=== PATIENT | female | born 1965 | race Caucasian/White ===

== ENCOUNTER 2017-10-17 13:08 | Emergency (ER) | payer MEDICARE ==
[~2017-10-17] VITALS: Ht 167.6 cm; Wt 97.5 kg
[~2017-10-17 13:08] MED LIST: CYCLOBENZAPRINE10 M1 PO; LOMOTIL 0.025 M1 TAB PO; MEDROL4 M2 PO; NORCO 5-325 TA1 EACH PO; PROTONIX40 M3 PO; TRANS SCOPE PAT1 PAT TOP; TRIAMTERENE-HC1 EAC3; VALIUM5 M1 PO; VICODIN 300 MG-1 TAB PO; ZOCOR40 M1 PO
--- NOTE | 2017-10-17 13:15 | ED UPPER/LOWER EXTREMITY COMPL ---
History of Present Illness General Chief Complaint: Lower Extremity Problems Stated Complaint: PT FOR PAIN IN THE BACK OR HIP ON THE LT SIDE Source: patient Exam Limitations: no limitations Vital Signs & Intake/Output Vital Signs & Intake/Output Vital Signs Date Time Temp Pulse Resp B/P B/P Pulse O2 O2 Flow FiO2 Mean Ox Delivery Rate 10/17 1430 98.3 76 18 124/88 98 Room Air 10/17 1312 98.6 87 16 155/93 99 Room Air Allergies Coded Allergies: acetaminophen (From PERCOCET) (Severe, Itching 06/16/15) oxycodone (From PERCOCET) (Severe, Itching 06/16/15) hydromorphone (From DILAUDID) (UNKNOWN PER PT 10/17/17) Reconcile Medications Hydrocodone/Acetaminophen (Vicodin 5-300 MG Tablet) 5 MG-300 MG TABLET 1 TAB PO BID PRN pain Ibuprofen 800 MG TABLET 1 TAB PO TID PRN pain Pantoprazole Sodium (Protonix) 40 MG TABLET.DR 1 TAB PO DAILY GERD (Reported) Simvastatin (Zocor*) 40 MG TABLET 1 TAB PO DAILY CHOLESTEROL (Reported) Triage Nurses Notes Reviewed? yes Onset: Gradual Duration: week(s): Timing: recent history Severity: moderate Pain/Injury Location: Left: Hip. Method of Injury: unknown HPI: 52YO FEMALE presents to ED complaining of left posterior hip pain x 4 weeks. Patient describes pain as constant, 5/10, burning. Pain is worse in the AM when patient first wakes up. Patient went to an urgent care last week and was prescribed Flexeril. Patient states that she took this medication 2 days however she did not like the way this medication made her feel. Patient states that despite use of Flexeril her symptoms persisted. Patient has tried ice which does improve her symptoms. There is no trauma or inciting prior to onset of pain. Patient denies back pain, numbness, tingling, fall. (Bryanna BLACK,Jaclyn Rodriguez) Past History Travel History Traveled to [place] past 21 day No Medical History Any Pertinent Medical History? see below for history Neurological: NONE (mENIERIE'S DISEASE), vertigo (m) EENT: NONE Cardiovascular: NONE Respiratory: NONE Gastrointestinal: GERD Hepatic: NONE Renal: NONE Musculoskeletal: NONE Psychiatric: NONE Endocrine: NONE Blood Disorders: NONE Cancer(s): NONE BLACK OFF WORKER/Reproductive: NONE Tetanus Vaccine: 10/01/11 Surgical History Surgical History: non-contributory Psychosocial History What is your primary language Kinyarwanda Tobacco Use: Current Daily Use Daily Tobacco Use Amount/Type: => 5 Cigarettes daily Family History Hx Contributory? No (Jaclyn Cee) Review of Systems Review of Systems Constitutional: Reports: no symptoms. EENTM: Reports: no symptoms. Respiratory: Reports: no symptoms. Cardiovascular: Reports: no symptoms. Gastrointestinal/Abdominal: Reports: no symptoms. Genitourinary: Reports: no symptoms. Musculoskeletal: Reports: see HPI. Skin: Reports: no symptoms. Neurological/Psychological: Reports: no symptoms. Hematologic/Endocrine: Reports: no symptoms. Immunological: Reports: no symptoms. All Other Systems: Reviewed and Negative (Jaclyn Cee) Physical Exam Physical Exam General Appearance: well developed/nourished, no apparent distress, alert, awake Head: atraumatic, normal appearance Eyes: Bilateral: normal appearance. Ears, Nose, Throat: hearing grossly normal Neck: normal inspection, supple, full range of motion Cardiovascular/Respiratory: no respiratory distress Back: normal inspection, normal range of motion, no vertebral tenderness Leg Left: normal range of motion, normal inspection Leg Right: normal range of motion, normal inspection Hip Left: +SI and buttocks tenderness, ROM at hip intact Hip Right: normal range of motion, normal inspection Knee Left: normal range of motion, normal inspection Knee Right: normal range of motion, normal inspection Foot Left: normal inspection, normal range of motion Foot Right: normal inspection, normal range of motion Neurologic/Tendon: Strength 5/5 equal bilaterally, sensation intact Skin: intact, normal color, warm/dry (Jaclyn Cee) Progress Differential Diagnosis: contusion, fracture, sprain, tendon injury, tendinitis, arthritis, radicular pain, sciatica Plan of Care: X-rays show no acute abnormality. Patient's symptoms are reproducible on physical exam, likely related to tendon or muscle injury/inflammation. Also possibility of sciatic nerve pathology given point tenderness over her SI joint. Patient to follow-up with orthopedics for further evaluation. Patient able to ambulate without difficulty leaving the emergency department. The patient agrees with the plan of care. Diagnostic Imaging: Viewed by Me: Radiology Read. Discussed w/RAD: Radiology Read. Radiology Impression: PATIENT: TONIO ADAMES PRESENT AGE: 52 PATIENT ACCOUNT NO: [id number] : 65 LOCATION: [facility] ORDERING PHYSICIAN: Jaclyn BLACK SERVICE DATE: 10/17/17 EXAM TYPE: RAD - XRY-LUMBOSACRAL SPINE 4 VIEWS EXAMINATION: XR LUMBOSACRAL SPINE CLINICAL INFORMATION: Left sacroiliac pain with radiation. COMPARISON: None TECHNIQUE: 4 views of the lumbosacral spine were obtained. FINDINGS: No fracture or subluxation. Vertebral bodies and posterior elements are anatomically aligned. Vertebral body heights are maintained. Disc spaces are maintained. Small multilevel endplate osteophytes. The sacroiliac joints are symmetric and intact. The sacrum is intact. The bowel gas pattern is unremarkable. IMPRESSION: Mild degenerative changes at the lumbar spine. Unremarkable appearance of the sacroiliac joints. DICTATED BY: Nica CASTELLANOS,Fredis DATE/TIME DICTATED:1357 [employer] DESIGNER:SANTILLAN DATE/TIME TRANSCRIBED:10/17/171357 CONFIDENTIAL, DO NOT COPY WITHOUT APPROPRIATE AUTHORIZATION. <Electronically signed in Other Vendor System> SIGNED BY: Nica CASTELLANOS,Fredis 10/17/17 1403, PATIENT: TONIO ADAMES PRESENT AGE: 52 PATIENT ACCOUNT NO: [id number] : 65 LOCATION: [facility] ORDERING PHYSICIAN: Jaclyn BLACK SERVICE DATE: 10/17/17 EXAM TYPE: RAD - XRY-HIP 2- 3 VIEWS, LEFT EXAMINATION: XR HIP, LEFT CLINICAL INFORMATION: Left sacroiliac pain and hip pain. COMPARISON: None TECHNIQUE: Two views of the left hip. FINDINGS: No fracture or dislocation. The femoral head is well-seated within its acetabulum. The visualized left hemipelvis is intact. The left sacroiliac joint is unremarkable. The bowel gas pattern is unremarkable. IMPRESSION: Unremarkable appearance of the left hip and sacroiliac joint. DICTATED BY: Nica CASTELLANOS, Fredis DATE/TIME DICTATED:10/17/171399 SU[employer]UNIT[employer] DESIGNER:SANTILLAN DATE/TIME TRANSCRIBED:10/17/171399 CONFIDENTIAL, DO NOT COPY WITHOUT APPROPRIATE AUTHORIZATION. <Electronically signed in Other Vendor System> SIGNED BY: Fredis Yousif MD 10/17/17 3373 (Jaclyn Cee) Departure Departure Disposition: HOME OR SELF CARE Condition: Stable Clinical Impression Primary Impression: Hip pain Qualifiers: Laterality: left Qualified Code: M25.552 - Pain in left hip Referrals: Fely CASTELLANOS,Isabel Biggs (PCP/Family) Nathaly Martin MD Additional Instructions: Take Vicodin as prescribed as needed for pain. Take ibuprofen additionally for pain and inflammation. Follow-up with orthopedic referral, Dr. Martin, call today to make an appointment for as soon as possible. Return with worsening symptoms or concerns. Please note that there might be incidental findings in your evaluation that are unrelated to the current emergency department visit. Please notify your primary care doctor about this emergency department visit in order to obtain and review all of the testing performed so that these incidental findings can be monitored as needed. If you had an x-ray performed, please understand that some fractures may not be seen on the initial set of x-rays. If your symptoms persist you might need a repeat set of x-rays to check for such a fracture. If you had a laceration evaluated, please understand that foreign bodies such as glass or wood may not be visible to the naked eye or on plain x-rays. If the wound becomes red, swollen, increasingly more painful or if there is any drainage from the wound, please have it reevaluated by a physician for the possibility of a retained foreign body. If you're unable to follow up as outlined in the discharge instructions please return to the emergency department. Thank you for choosing the [facility] Emergency Department for your care. It was a pleasure to serve you today. Departure Forms: Customer Survey General Discharge Information Prescriptions: Current Visit Scripts Hydrocodone/Acetaminophen (Vicodin 5-300 MG Tablet) 1 TAB PO BID PRN pain #10 TAB Ibuprofen 1 TAB PO TID PRN pain #30 TAB (Jaclyn Cee) PA/[employer] Co-Sign Statement Statement: ED Attending supervision documentation- [] I saw and evaluated the patient. I have also reviewed all the pertinent lab results and diagnostic results. I agree with the findings and the plan of care as documented in the PA's/[employer]'s documentation. [X] I have reviewed the ED Record and agree with the PA's/[employer]'s documentation. [] Additions or exceptions (if any) to the PAs/[employer]'s note and plan are summarized below: [] (Camilo Alva DO)
--- NOTE | 2017-10-17 14:03 | RADIOLOGY REPORT ---
EXAMINATION: XR LUMBOSACRAL SPINE CLINICAL INFORMATION: Left sacroiliac pain with radiation. COMPARISON: None TECHNIQUE: 4 views of the lumbosacral spine were obtained. FINDINGS: No fracture or subluxation. Vertebral bodies and posterior elements are anatomically aligned. Vertebral body heights are maintained. Disc spaces are maintained. Small multilevel endplate osteophytes. The sacroiliac joints are symmetric and intact. The sacrum is intact. The bowel gas pattern is unremarkable. IMPRESSION: Mild degenerative changes at the lumbar spine. Unremarkable appearance of the sacroiliac joints.
--- NOTE | 2017-10-17 14:09 | RADIOLOGY REPORT ---
EXAMINATION: XR HIP, LEFT CLINICAL INFORMATION: Left sacroiliac pain and hip pain. COMPARISON: None TECHNIQUE: Two views of the left hip. FINDINGS: No fracture or dislocation. The femoral head is well-seated within its acetabulum. The visualized left hemipelvis is intact. The left sacroiliac joint is unremarkable. The bowel gas pattern is unremarkable. IMPRESSION: Unremarkable appearance of the left hip and sacroiliac joint.
[2017-10-17] MEDS ORDERED: IBUPROFEN800 M1 PO (14:27)
[2017-10-17] MEDS ORDERED: VICODIN 5-3001 EACH PO (14:27)
[2017-10-17 14:30] VITALS: BP 124/88
== END 2017-10-17 14:30 ==
LOC: ERH 13:08
DX: M25.552 Pain in left hip (principal)
CPT/HCPCS: 72110; 73502-LT; 96372; J1885